=== PATIENT | female | born 1950 | race Caucasian/White ===

== ENCOUNTER 2018-01-05 13:11 | Emergency (ER) | payer OTHER ==
--- NOTE | 2018-01-05 14:39 | RAD REPORT ---
EXAM DESCRIPTION: RADSacrum And Coccyx01/05/2018 2:30 pm CLINICAL HISTORY: Back pain status post fall FINDINGS: No fracture is seen. The bones are osteoporotic
--- NOTE | 2018-01-05 15:08 | ER ---
Nurse's Notes [facility] Name: Kalpana Whitmore Age: 67 yrs Sex: Female : 1950 Arrival Date: 01/05/2018 Time: 13:17 Bed Treatment Private MD: Diagnosis: Contusion of lower back and pelvis Presentation: 01/05 13:33 Presenting complaint: Patient states: Friday a week ago, i fell and hurt my butt, hj denies hitting head and LOC;. Transition of care: patient was not received from another setting of care. Onset of symptoms was January 05, 2018. Care prior to arrival: None. 13:33 Method Of Arrival: Ambulatory 13:33 Acuity: EMMIE 4 hj Triage Assessment: 13:34 General: Appears in no apparent distress. uncomfortable, Behavior is calm, cooperative, hj appropriate for age. Pain: Complains of pain in coccyx. Historical: - Allergies: 13:34 No Known Allergies; hj - Home Meds: 13:34 None [Active]; hj - PMHx: 13:34 None; hj - PSHx: 13:34 None; hj - Immunization history:: Adult Immunizations unknown. - Social history:: The patient lives at home, Smoking status: unknown. Screenin:49 Abuse screen: Denies threats or abuse. Denies injuries from another. Nutritional iw screening: No deficits noted. Tuberculosis screening: No symptoms or risk factors identified. Fall Risk None identified. Assessment: 14:48 General: Appears in no apparent distress. Behavior is calm, cooperative. Pain: iw Complains of pain in buttocks and coccyx. Neuro: Level of Consciousness is awake, alert, obeys commands, Oriented to person, place, time, situation, Moves all extremities. Full function. Cardiovascular: Patient's skin is warm and dry. Respiratory: Respiratory effort is even, unlabored, Respiratory pattern is regular, symmetrical. Derm: Skin is pink, warm \T\ dry. Musculoskeletal: Range of motion: intact in all extremities. Vital Signs: 13:35 BP 114 / 79; Pulse 73; Resp 18; Temp 97.5(TE); Pulse Ox 100% on R/A; Weight 44.45 kg; hj Height 5 ft. 1 in. (154.94 cm); Pain 10/10; 13:35 Body Mass Index 18.52 (44.45 kg, 154.94 cm) ED Course: 13:17 Patient arrived in ED. mr 13:34 Triage completed. hj 13:35 Arm band placed on left wrist. hj 14:26 X-ray completed. Patient tolerated procedure well. Patient moved back from radiology. jb2 14:26 XRAY Sacrum And Coccyx In Process Unspecified. EDMS 14:45 Eliane Carrillo, RN is Primary Nurse. iw 14:48 Carlos Rowe MD is Attending Physician. gs 14:49 Patient has correct armband on for positive identification. iw 14:49 No provider procedures requiring assistance completed. Patient did not have IV access iw during this emergency room visit. 15:06 Magdiel Banks MD is Referral Physician. 15:07 Sandra Lundberg DO is Referral Physician. gs Administered Medications: No medications were administered Outcome: 15:07 Discharge ordered by MD. 15:31 Discharged to home ambulatory. kb1 15:31 Condition: stable 15:31 Discharge instructions given to patient, Instructed on discharge instructions, follow up and referral plans. Demonstrated understanding of instructions, follow-up care. 15:31 Patient left the ED. kb1 Signatures: Dispatcher [employer] EDPA [place] Rosanna Pickette jb2 Eliane Carrillo, DELMY BROCK Jeff Nina RN RN Carlos Rowe MD MD Rosalinda Clark RN RN kb1
--- NOTE | 2018-01-05 15:08 | EDPHYS ---
Physician Documentation [facility] Name: Kalpana Whitmore Age: 67 yrs Sex: Female : 1950 Arrival Date: 01/05/2018 Time: 13:17 Bed Treatment Private MD: ED Physician Carlos Rowe HPI: 01/05 15:05 This 67 yrs old Female presents to ER via Ambulatory with complaints of Fall gs Injury. 15:05 Details of fall: The patient fell from seated position. Onset: The symptoms/episode gs began/occurred 10 day(s) ago. Associated injuries: The patient sustained coccyx. Severity of symptoms: At their worst the symptoms were moderate, in the emergency department the symptoms are unchanged. The patient has not experienced similar symptoms in the past. Historical: - Allergies: 13:34 No Known Allergies; hj - Home Meds: 13:34 None [Active]; hj - PMHx: 13:34 None; hj - PSHx: 13:34 None; hj - Immunization history:: Adult Immunizations unknown. - Social history:: The patient lives at home, Smoking status: unknown. ROS: 15:05 All other systems are negative. gs Exam: 15:05 Head/Face: Normocephalic, atraumatic. Eyes: Pupils equal round and reactive to light, gs extra-ocular motions intact. Lids and lashes normal. Conjunctiva and sclera are non-icteric and not injected. Cornea within normal limits. Periorbital areas with no swelling, redness, or edema. ENT: Nares patent. No nasal discharge, no septal abnormalities noted. Tympanic membranes are normal and external auditory canals are clear. Oropharynx with no redness, swelling, or masses, exudates, or evidence of obstruction, uvula midline. Mucous membranes moist. Neck: Trachea midline, no thyromegaly or masses palpated, and no cervical lymphadenopathy. Supple, full range of motion without nuchal rigidity, or vertebral point tenderness. No Meningismus. Chest/axilla: Normal chest wall appearance and motion. Nontender with no deformity. No lesions are appreciated. Cardiovascular: Regular rate and rhythm with a normal S1 and S2. No gallops, murmurs, or rubs. Normal PMI, no JVD. No pulse deficits. Respiratory: Lungs have equal breath sounds bilaterally, clear to auscultation and percussion. No rales, rhonchi or wheezes noted. No increased work of breathing, no retractions or nasal flaring. Abdomen/GI: Soft, non-tender, with normal bowel sounds. No distension or tympany. No guarding or rebound. No evidence of tenderness throughout. Skin: Warm, dry with normal turgor. Normal color with no rashes, no lesions, and no evidence of cellulitis. MS/ Extremity: Pulses equal, no cyanosis. Neurovascular intact. Full, normal range of motion. Neuro: Awake and alert, GCS 15, oriented to person, place, time, and situation. Cranial nerves II-XII grossly intact. Motor strength 5/5 in all extremities. Sensory grossly intact. Cerebellar exam normal. Normal gait. 15:05 Constitutional: The patient appears alert, awake. 15:05 Back: pain, that is mild, of the coccyx. Vital Signs: 13:35 BP 114 / 79; Pulse 73; Resp 18; Temp 97.5(TE); Pulse Ox 100% on R/A; Weight 44.45 kg; hj Height 5 ft. 1 in. (154.94 cm); Pain 10/10; 13:35 Body Mass Index 18.52 (44.45 kg, 154.94 cm) MDM: 15:02 Patient medically screened. 15:05 Differential diagnosis: contusion, fracture, sprain. Data reviewed: vital signs, nurses notes. 01/05 13:37 Order name: XRAY Sacrum And Coccyx; Complete Time: 15:02 Administered Medications: No medications were administered Disposition: 01/05/18 15:07 Discharged to Home. Impression: Contusion of lower back and pelvis. - Condition is Stable. - Discharge Instructions: Tailbone Injury, [id number]. - Medication Reconciliation Form, Thank You Letter, Antibiotic Education, Prescription Opioid Use form. - Follow up: Magdiel Banks MD; When: 2 - 3 days; Reason: Re-evaluation by your physician. Follow up: Sandra Lundberg DO; When: 2 - 3 days; Reason: Re-evaluation by your physician. Signatures: Dispatcher [employer] EDEliane Morales RN RN Jeff Nina RN RN Carlos Rowe MD MD Brown, Rosalinda, RN RN kb1
== END 2018-01-05 15:31 | disposition home or self-care (01) ==
LOC: ER 13:11
DX: S30.0XXA Contusion of lower back and pelvis, initial encounter (principal); W19.XXXA Unspecified fall, initial encounter; Y93.9 Activity, unspecified; Y92.9 Unspecified place or not applicable
CPT/HCPCS: 72220; 99283